=== PATIENT | male | born 1965 | race American Indian/Alaskan Native ===

== ENCOUNTER 2017-02-28 03:29 | Emergency (ER) | payer MEDICAID ==
[2017-02-28 03:29] VITALS: BMI 53.8
[2017-02-28 03:39] VITALS: BP 112/67; PULSE 88; RESP 16; TEMP 98.8; O2SAT 97
--- NOTE | 2017-02-28 04:13 | ED PDOC ---
HPI: Dental Pain/Injury Time Seen by Provider: 02/28/17 03:40 Chief Complaint (Nursing): Dental Pain Chief Complaint (Provider): toothache History Per: Patient History/Exam Limitations: no limitations Onset/Duration Of Symptoms: Days (3) Current Symptoms Are (Timing): Still Present Additional Complaint(s): 51yo male with PMHx including seizures presents to the ED with c/o toothache x 3 days. Patient reports right sided upper toothache and has hx of multiple dental caries and root canal performed at [facility] and given Rx for ibuprofen. Patient unable to recall why he was taking initially but states ibuprofen is not relieving his pain. Patient was advised by provider that he will not receive narcotics and bargained to be given limited supply of Tylenol # 3. Denies fever, chills, n/v/d, cough. Past Medical History Reviewed: Historical Data, Nursing Documentation, Vital Signs Vital Signs: Last Vital Signs Temp 98.8 F 02/28/17 03:37 Pulse 88 02/28/17 03:37 Resp 16 02/28/17 03:37 BP 112/67 02/28/17 03:37 Pulse Ox 97 02/28/17 03:37 - Medical History PMH: Arthritis, Seizures Denies: Anxiety, Bipolar Disorder, Depression, Paranoia, Post Traumatic Stress Disorder, Chronic Kidney Disease, Schizophrenia - Surgical History Surgical History: No Surg Hx - Family History Family History: States: No Known Family Hx - Social History Current smoker - smoking cessation education provided: No Alcohol: None Drugs: Denies - Home Medications Home Medications: Ambulatory Orders Medication Instructions Recorded Acetaminophen with Codeine 1 each PO Q6 #8 tablet 02/28/17 [Tylenol with Codeine #3 Tablet] Amoxicillin/Clavulanate [Augmentin 1 tab PO BID #14 tab 02/28/17 875 MG-125 MG] - Allergies Allergies/Adverse Reactions: Allergies Allergy/AdvReac Type Severity Reaction Status Date / Time No Known Allergies Allergy Verified 04/07/16 12:16 Review of Systems ROS Statement: Except As Marked, All Systems Reviewed And Found Negative Constitutional: Negative for: Fever, Chills ENT: Positive for: Other (toothache ) Respiratory: Negative for: Cough Gastrointestinal: Negative for: Nausea, Vomiting, Diarrhea Physical Exam - Reviewed Nursing Documentation Reviewed: Yes Vital Signs Reviewed: Yes - Physical Exam Appears: Positive for: Well, No Acute Distress Head Exam: Positive for: ATRAUMATIC, NORMAL INSPECTION, NORMOCEPHALIC Skin: Positive for: Normal Color, Warm, Dry Eye Exam: Positive for: Normal appearance ENT: Positive for: Other (multiple dental caries right upper mouth, no evidence of acute process ) Neck: Positive for: Normal, Painless ROM, Supple Neurologic/Psych: Positive for: Alert, Oriented - ECG O2 Sat by Pulse Oximetry: 97 Pulse Ox Interpretation: Normal (RA) Medical Decision Making Medical Decision Makin: Impression: 51yo male w/ dental caries and drug-seeking behavior Plan: Patient informed he will receive Toradol injection in ED and 2 day supply of Tylenol #3. Advised to f/u w/ dentist at [facility] and informed about narcotic policy. Patient stable for d/c. Dx: dental caries, drug-seeking behavior stable Scribe Attestation: Documented by Yina Riley acting as a scribe for Francois Johnson MD. Provider Scribe Attestation: All medical record entries made by the Scribe were at my direction and personally dictated by me. I have reviewed the chart and agree that the record accurately reflects my personal performance of the history, physical exam, medical decision making, and the department course for this patient. I have also personally directed, reviewed, and agree with the discharge instructions and disposition. Disposition - Clinical Impression Clinical Impression: Dental caries, Drug-seeking behavior - Patient ED Disposition Is Patient to be Admitted: No - Disposition Disposition: Routine/Home Disposition Time: 04:10 Condition: STABLE Prescriptions: Amoxicillin/Clavulanate [Augmentin 875 MG-125 MG] 1 tab PO BID #14 tab Acetaminophen with Codeine [Tylenol with Codeine #3 Tablet] 1 each PO Q6 #8 tablet Instructions: Dental Caries (ED)
== END 2017-02-28 04:32 | disposition home or self-care (01) ==
LOC: H.ER 03:29
DX: K08.89 Other specified disorders of teeth and supporting structures (principal)